=== PATIENT | male | born 1975 | race African-American/Black ===

== ENCOUNTER → 2017-11-08 | Outpatient (CLI) | payer OTHER ==
--- NOTE | 2017-11-08 17:14 | KCIC ---
MRI Cervical Spine Without Contrast History: Cervicalgia, previous injury September 2017, neck pain and stiffness, headache, heavy box fell onto the left neck and shoulder Technique: Multiplanar, multi sequential noncontrast MR imaging was performed of the cervical spine. Comparison: None Findings: There is motion degradation. Cervical cord caliber is within normal limits without convincing focal signal abnormality. There is no significant marrow edema. There is no significant abnormality of the cervical medullary junction. Intervertebral disc spaces are mostly preserved other than mild degenerative disc disease at C5-6 and mild disc desiccation at other levels. Cervical vertebral body stature and AP alignment are maintained. There is mild diffuse narrowing of the cervical spinal canal on a developmental basis. C2-C3: Central canal is borderline about 10 mm on developmental basis. Neural foramina are adequate. C3-C4: There is broad protrusion more eccentric to the far left lateral recess superimposed on disc osteophyte complex. Central canal is narrowed to about 7-8 mm with a greater degree of left lateral recess stenosis. There is effacement of ventral subarachnoid space and contact of the ventral cord greater in the left lateral recess. There is left uncovertebral degenerative change which contributes to moderate to severe narrowing of the left neural foramen inferiorly. Right neural foramen is overall adequate. C4-C5: There is mild facet hypertrophic change greater on the left. There is minimal narrowing of the central canal to about 9 to 10 mm on developmental basis. There is mild narrowing of the left neural foramen, right neural foramen adequate. C5-C6: There is disc osteophyte complex and bulge/protrusion more eccentric to the right lateral recess. Central canal is narrowed to about 9 mm with a greater degree of right lateral recess stenosis, effacement of ventral subarachnoid space and contact of the ventral cord greater in the right lateral recess. Left neural foramen is adequate, mild to moderate narrowing of the more proximal right neural foramen. C6-C7: Central canal is adequate about 10-11 mm. Neural foramina are adequate. C7-T1: There is very shallow left paracentral protrusion. Central canal is borderline about 10 mm. Neural foramina are adequate. Impression: 1. There is somewhat diffuse narrowing of the cervical spinal canal on a developmental basis, additional spinal stenosis greatest at C3-4 with a greater degree of left lateral recess stenosis at this level, also spinal stenosis C4-5 and C5-C6 as described. 2. There is moderate to severe narrowing of the left C3-4 neural foramen, [id number] narrowing on the right at C5-6. Electronically signed by: Albert Jane MD (11/08/2017 5:11 PM) [id number]
== END | disposition home or self-care (01) ==
LOC: KCIC MRI 16:03
PROVIDERS: ATTEND Family Medicine
DX: M48.02 Spinal stenosis, cervical region (principal); M50.23 Other cervical disc displacement, cervicothoracic region; M25.78 Osteophyte, vertebrae; M50.322 Other cervical disc degeneration at C5-C6 level
CPT/HCPCS: 72141